=== PATIENT | male | born 1990 | race Caucasian/White ===

== ENCOUNTER 2017-04-26 11:40 | Emergency (ER) | payer OTHER ==
[~2017-04-26] VITALS: Ht 177.8 cm; Wt 79.4 kg
[2017-04-26] MEDS ORDERED: NAPROSYN500 MG PO (13:16)
[2017-04-26] MEDS ORDERED: CLINDAMYCIN150 MG PO (13:16)
== END 2017-04-26 12:01 | disposition home or self-care (01) ==
LOC: ED 11:40
DX: S01.112A Laceration without foreign body of left eyelid and periocular area, initial encounter (principal); R03.0 Elevated blood-pressure reading, without diagnosis of hypertension; Z88.0 Allergy status to penicillin; Z88.1 Allergy status to other antibiotic agents; W45.8XXA Other foreign body or object entering through skin, initial encounter; Y93.89 Activity, other specified; Y92.69 Other specified industrial and construction area as the place of occurrence of the external cause; Y99.9 Unspecified external cause status

== ENCOUNTER 2017-05-10 09:39 | Emergency (ER) | payer OTHER ==
[~2017-05-10] VITALS: Ht 177.8 cm; Wt 79.4 kg
[~2017-05-10 09:39] MED LIST: CLINDAMYCIN150 MG PO; NAPROSYN500 MG PO
== END 2017-05-10 10:10 | disposition home or self-care (01) ==
LOC: ED 09:39
DX: S01.112D Laceration without foreign body of left eyelid and periocular area, subsequent encounter (principal); Z88.0 Allergy status to penicillin; Z88.1 Allergy status to other antibiotic agents; X58.XXXD Exposure to other specified factors, subsequent encounter

== ENCOUNTER → 2020-08-26 | Outpatient (CLI) | payer OTHER | END | disposition home or self-care (01) | LOC: CT 09:00 | PROVIDERS: ATTEND Family Medicine | DX: K80.20 Calculus of gallbladder without cholecystitis without obstruction (principal); K57.30 Diverticulosis of large intestine without perforation or abscess without bleeding ==

== ENCOUNTER 2022-06-22 21:17 | Emergency (ER) | payer OTHER ==
[~2022-06-22] VITALS: Ht 177.8 cm; Wt 76.2 kg
[2022-06-22] MEDS ORDERED: METAMUCIL PACK3.4 GM PO (21:26)
[2022-06-22 22:22] LABS: BASO % 0.8 % (0.0-1.0); EOS # 0.2 10*3/uL (0.0-0.4); EOS % 3.8 % (1.0-4.0); HEMATOCRIT 40.6 % (42.0-52.0); LYMPH # 1.7 10*3/uL (1.3-4.4); LYMPH % 32.1 % (27.0-41.0); MEAN CELL VOLUME 86.9 fl (80.0-94.0); MEAN CORPUSCULAR HGB CONC 34.5 g/dl (33.0-37.0); MEAN PLATELET VOLUME 11.3 fl (9.6-12.3); MONO # 0.5 10*3/uL (0.1-1.0); MONO % 9.9 % (3.0-9.0); NEUT # 2.8 10*3/uL (2.3-7.9); PLATELET COUNT AUTOMATED 156 10*3/uL (130-400); RED BLOOD COUNT 4.67 10*6/uL (4.50-5.90); RED CELL DISTRI WIDTH 12.5 % (0-14.5); WHITE BLOOD COUNT 5.3 10*3/uL (4.8-10.8)
[2022-06-22 22:37] LABS: ALKALINE PHOSPHATASE 54 U/L (46-116); BUN 9 mg/dl (9-23); CHLORIDE 108 mmol/L (98-107); LIPASE 28 U/L (12-53); POTASSIUM 3.4 mmol/L (3.4-5.1); SGPT/ALT 20 U/L (10-49); TOTAL PROTEIN 6.2 gm/dL (6.0-8.0)
[2022-06-22] MEDS ORDERED: DICYCLOMINE HCL10 MG PO (23:06)
== END 2022-06-22 23:13 | disposition home or self-care (01) ==
LOC: ED 21:17
PROVIDERS: Physician Assistant
DX: R19.7 Diarrhea, unspecified (principal); R11.10 Vomiting, unspecified; Z88.0 Allergy status to penicillin; Z98.890 Other specified postprocedural states

== ENCOUNTER 2023-12-23 14:00 | Emergency (ER) | payer OTHER ==
[~2023-12-23] VITALS: Ht 177.8 cm; Wt 79.4 kg
[~2023-12-23 14:00] MED LIST changes: +DICYCLOMINE HCL10 MG PO; +METAMUCIL PACK3.4 GM PO
[2023-12-23] MEDS ORDERED: IOHEXOL 300 MG/ML 100 ML VIAL IV ONE (14:20)
[2023-12-23 14:35] LABS: BILIRUBIN Negative (Negative); BLOOD Negative (Negative); CLARITY Clear (Clear); COLOR Yellow (Yellow); GLUCOSE Negative (Negative); KETONE Negative (Negative); LEUKO ESTERASE Negative (Negative); NITRITE Negative (Negative); SPECIFIC GRAVITY 1.015 (1.001-1.030); UROBILINOGEN 0.2 E.U./dl (0.0-1.0)
[2023-12-23 14:44] LABS: BASO # 0.1 10*3/uL (0.0-0.1); BASO % 0.5 % (0.0-1.0); EOS # 0.1 10*3/uL (0.0-0.4); EOS % 0.6 % (1.0-4.0); HEMATOCRIT 43.5 % (42.0-52.0); LYMPH # 1.3 10*3/uL (1.3-4.4); LYMPH % 10.4 % (27.0-41.0); MEAN CELL VOLUME 89.1 fl (80.0-94.0); MEAN CORPUSCULAR HGB 30.1 pg (27.0-31.0); MEAN CORPUSCULAR HGB CONC 33.8 g/dl (33.0-37.0); MEAN PLATELET VOLUME 11.3 fl (9.6-12.3); MONO # 0.9 10*3/uL (0.1-1.0); MONO % 7.2 % (3.0-9.0); NEUT # 10.3 10*3/uL (2.3-7.9); NEUT % 80.9 % (47.0-73.0); PLATELET COUNT AUTOMATED 179 10*3/uL (130-400); RED BLOOD COUNT 4.88 10*6/uL (4.50-5.90); RED CELL DISTRI WIDTH 12.7 % (0-14.5); WHITE BLOOD COUNT 12.7 10*3/uL (4.8-10.8)
[2023-12-23 15:03] LABS: ALKALINE PHOSPHATASE 78 U/L (46-116); BUN 9 mg/dl (9-23); CHLORIDE 106 mmol/L (98-107); LIPASE 28 U/L (12-53); SGPT/ALT 21 U/L (5-49); TOTAL PROTEIN 7.2 gm/dL (6.0-8.0)
[2023-12-23 15:12] LABS: WBC 0-2 wbc/hpf (0-5)
[2023-12-23 15:13] LABS: BACTERIA TRACE
[2023-12-23] MEDS ORDERED: METRONIDAZOLE500 M1 PO (16:37)
[2023-12-23] MEDS ORDERED: CIPRO500 MG PO (16:37)
== END 2023-12-23 16:47 | disposition home or self-care (01) ==
LOC: ED 14:00
PROVIDERS: Physician Assistant Medical
DX: K57.32 Diverticulitis of large intestine without perforation or abscess without bleeding (principal); Z88.0 Allergy status to penicillin; Z98.890 Other specified postprocedural states